=== PATIENT | male | born 1975 | race African-American/Black ===

== ENCOUNTER 2016-12-30 03:35 | Emergency (ER) | payer OTHER ==
[~2016-12-30] VITALS: Ht 177.8 cm; Wt 82.9 kg
[~2016-12-30 03:35] MED LIST: ASPI325T PO; HYDR-3533 PO
[2016-12-30 03:41] VITALS: BP 140/95; PULSE 82; RESP 16; TEMP 98.9; O2SAT 98
--- NOTE | 2016-12-30 04:00 | PD ---
HPI Chief Complaint: Cold / Flu Symptoms Time Seen by Provider: 03:56 Travel History International Travel<30 days: No Contact w/Intl Traveler<30days: No Traveled to known affect area: No History of Present Illness HPI The patient is a 41-year-old male who complains of cough, chills at home and had some chest pain earlier which is resolved since Wednesday. The patient did not take his temperature. He denies any sore throat, ear pain but has also had some slight diarrhea. He denies any shortness of breath. He smokes one half pack a day. PFSH Past Medical History Arthritis: No Asthma: No Autoimmune Disease: No Heart Rhythm Problems: No Cancer: No Cardiovascular Problems: No High Cholesterol: No Chemotherapy: No Chest Pain: No Congestive Heart Failure: No COPD: No Cerebrovascular Accident: No Diabetes: No Diminished Hearing: No Endocrine: No Glaucoma: No Genitourinary: No Headaches: Yes (CHRONIC X 2-3 YEARS STARTING IN 2008) Hepatitis: No Hiatal Hernia: No Hypertension: Yes (ONLY HIGH WITH PAIN) Immune Disorder: No Kidney Stones: No Medical other: Yes (spinal tap) Musculoskeletal: Yes (RIGHT ARM PAIN PRIOR, RESOLVING NOW) Neurologic: Yes Psychiatric: No Reproductive: No Respiratory: No Immunizations Current: Yes Migraines: No Myocardial Infarction: No Radiation Therapy: No Renal Failure: No Seizures: No Sickle Cell Disease: No Sleep Apnea: No Thyroid Disease: No Ulcer: No Influenza Vaccination: No PNEUMOCCOCAL Vaccine (Year): 2 Past Surgical History Abdominal Surgery: No AICD: No Appendectomy: No Arteriovenous Shunt: No Cardiac Surgery: No Cholecystectomy: No Ear Surgery: No Endocrine Surgery: No Eye Surgery: No Genitourinary Surgery: No Gynecologic Surgery: No Joint Replacement: No Oral Surgery: No Pacemaker: No Thoracic Surgery: No Social History Alcohol Use: Yes ( daily) Tobacco Use: No (quit) Substance Use: No Allergies-Medications (Allergen,Severity, Reaction): Coded Allergies: Toradol (Verified Allergy, Intermediate, Chills, 12/30/16) Tylenol/Codeine (Verified Allergy, Intermediate, 12/30/16) Reported Meds & Prescriptions Reported Meds & Active Scripts Active Phenergan (Promethazine HCl) 25 Mg Tablet 25 Mg PO Q6H PRN Phenergan (Promethazine HCl) 25 Mg Tablet 25 Mg PO Q6H PRN Review of Systems Except as stated in HPI: all other systems reviewed are Neg Physical Exam Narrative GENERAL: The patient is alert, oriented 3 in no respiratory distress. His vital signs show blood pressure 140/95 but are otherwise normal. SKIN: Focused skin assessment warm/dry. HEAD: Atraumatic. Normocephalic. EYES: Pupils equal and round. No scleral icterus. No injection or drainage. ENT: No nasal bleeding or discharge. Mucous membranes pink and moist. The tympanic membranes are clear and the throat shows no erythema, abscess or exudate. NECK: Trachea midline. No JVD. There is no meningismus present. CARDIOVASCULAR: Regular rate and rhythm. No murmur appreciated. RESPIRATORY: No accessory muscle use. Lungs show bilateral wheezes scattered widely. Breath sounds equal bilaterally. GASTROINTESTINAL: Abdomen soft, non-tender, nondistended. Hepatic and splenic margins not palpable. No guarding or rebound is present. MUSCULOSKELETAL: No obvious deformities. No clubbing. No cyanosis. No edema. NEUROLOGICAL: Awake and alert. No obvious cranial nerve deficits. Motor grossly within normal limits. Normal speech. PSYCHIATRIC: Appropriate mood and affect; insight and judgment normal. Data Data Last Documented VS Vital Signs Date Time Temp Pulse Resp B/P Pulse Ox O2 Delivery O2 Flow Rate FiO2 12/30/16 05:10 75 16 124/89 99 Room Air 12/30/16 03:41 98.9 Orders Complete Blood Count With Diff (12/30/16 03:57) Comprehensive Metabolic Panel (12/30/16 03:57) Chest, Pa & Lat (12/30/16 03:57) Ondansetron Inj (Zofran Inj) (12/30/16 05:00) Sodium Chlor 0.9% 1000 Ml Inj (Ns 1000 M (12/30/16 05:00) Acetaminophen (Tylenol) (12/30/16 05:30) Labs Laboratory Tests Test 12/30/16 04:11 White Blood Count 5.1 TH/MM3 Red Blood Count 4.39 MIL/MM3 Hemoglobin 13.7 GM/DL Hematocrit 40.4 % Mean Corpuscular Volume 91.9 FL Mean Corpuscular Hemoglobin 31.2 PG Mean Corpuscular Hemoglobin 33.9 % Concent Red Cell Distribution Width 11.8 % Platelet Count 228 TH/MM3 Mean Platelet Volume 8.1 FL Neutrophils (%) (Auto) 47.6 % Lymphocytes (%) (Auto) 39.6 % Monocytes (%) (Auto) 6.0 % Eosinophils (%) (Auto) 5.1 % Basophils (%) (Auto) 1.7 % Neutrophils # (Auto) 2.4 TH/MM3 Lymphocytes # (Auto) 2.0 TH/MM3 Monocytes # (Auto) 0.3 TH/MM3 Eosinophils # (Auto) 0.3 TH/MM3 Basophils # (Auto) 0.1 TH/MM3 CBC Comment DIFF FINAL Differential Comment Sodium Level 140 MEQ/L Potassium Level 3.7 MEQ/L Chloride Level 105 MEQ/L Carbon Dioxide Level 24.7 MEQ/L Anion Gap 10 MEQ/L Blood Urea Nitrogen 16 MG/DL Creatinine 1.20 MG/DL Estimat Glomerular Filtration 80 ML/MIN Rate Random Glucose 108 MG/DL Calcium Level 8.6 MG/DL Total Bilirubin 0.2 MG/DL Aspartate Amino Transf 24 U/L (AST/SGOT) Alanine Aminotransferase 37 U/L (ALT/SGPT) Alkaline Phosphatase 72 U/L Total Protein 7.0 GM/DL Albumin 3.3 GM/DL [facility] Medical Decision Making Medical Screen Exam Complete: Yes Emergency Medical Condition: Yes Medical Record Reviewed: Yes Interpretation(s) The CBC is normal. The complete metabolic profile shows a GFR of 80 and albumin 3.3 but is otherwise normal. The chest x-ray shows no acute disease. Differential Diagnosis Viral syndrome, viral gastroenteritis, pneumonia, bronchitis, electrolyte disorder, dehydration, renal insufficiency, hypo-/hyperglycemia, bacterial enteritis Narrative Course The patient appears to have a viral gastroenteritis. The low normal white count strongly suggest a viral etiology. It is now 0455 and the patient has become nauseated. We will give him some IV fluids as well as Zofran IV. He will be prescribed Phenergan and increase his clear liquid intake at home. He needs to follow-up with a primary care physician this week. The patient had a headache but we gave him some Tylenol and the headache is completely resolved now. The time now 0551. The patient at this time is not nauseated and has no headache and wants to go home. I tried write him a 4 day work excuse. He was not except that, he wants to work. I will write him a 2 day work excuse. He needs to follow-up with his primary care physician this week. It is now 0517 and the patient is successfully drinking Gatorade. Diagnosis Primary Impression: Viral gastroenteritis Additional Instructions: Rest, drink increased clear liquids and follow-up with your primary care physician this week. The Phenergan is for nausea and this is every 6 hours as needed. Do not allow yourself to get dehydrated. Med/Other Pt SpecificInfo: Prescription(s) given Scripts Promethazine (Phenergan)25 Mg [id number] Mg PO Q6H PRN (NAUSEA OR VOMITING) #30 TAB Ref 0 Prov:Josef Nguyen MD 12/30/16 Promethazine (Phenergan)25 Mg [id number] Mg PO Q6H PRN (NAUSEA OR VOMITING) #30 TAB Ref 0 Prov:Josef Nguyen MD 12/30/16 Disposition: 01 DISCHARGE HOME Condition: Stable Josef Nguyen MD Dec 30, 2016 04:00
[2016-12-30 04:17] LABS: AUTOMATED NEUTROPHIL # 2.4 TH/MM3 (1.8-7.7); BASOPHIL # 0.1 TH/MM3 (0-0.2); BASOPHIL % 1.7 % (0.0-2.0); EOSINOPHIL # 0.3 TH/MM3 (0-0.4); EOSINOPHIL % 5.1 % (0.0-4.0); HEMATOCRIT 40.4 % (39.0-51.0); HEMO FLAGS DIFF FINAL; LYMPH % 39.6 % (9.0-44.0); MEAN CELL VOLUME 91.9 FL (80.0-100.0); MEAN CORPUSCULAR HEMOGLOBIN 31.2 PG (27.0-34.0); MEAN CORPUSCULAR HGB CONC 33.9 % (32.0-36.0); NEUT % 47.6 % (16.0-70.0); PLATELET COUNT 228 TH/MM3 (150-450); RED BLOOD COUNT 4.39 MIL/MM3 (4.50-5.90); RED CELL DISTRIBUTION WIDTH 11.8 % (11.6-17.2); WHITE BLOOD COUNT 5.1 TH/MM3 (4.0-11.0)
[2016-12-30 04:29] LABS: CHLORIDE 105 MEQ/L (98-107); POTASSIUM 3.7 MEQ/L (3.5-5.1); SODIUM (NA) 140 MEQ/L (136-145)
[2016-12-30 04:32] LABS: ANION GAP 10 MEQ/L (5-15); BICARBONATE 24.7 MEQ/L (21.0-32.0)
[2016-12-30 04:33] LABS: BLOOD UREA NITROGEN 16 MG/DL (7-18)
[2016-12-30 04:35] LABS: ALT (GPT) 37 U/L (12-78)
[2016-12-30 04:36] LABS: AST (GOT) 24 U/L (15-37); GLOMERULAR FILTRATION RATE 80 ML/MIN (>89)
[2016-12-30 04:37] LABS: TOTAL BILIRUBIN ADULT 0.2 MG/DL (0.2-1.0)
[2016-12-30 04:38] LABS: ALKALINE PHOSPHATASE 72 U/L (45-117)
--- NOTE | 2016-12-30 04:50 | RADRPT ---
EXAM DATE/TIME: 12/30/2016 04:18 [facility] COMPARISON: No previous studies available for comparison. INDICATIONS : Cough. MEDICAL HISTORY : None. SURGICAL HISTORY : None. ENCOUNTER: Initial ACUITY: 2 days PAIN SCORE: 0/10 LOCATION: Bilateral chest FINDINGS: PA and lateral views of the chest demonstrate the lungs to be symmetrically aerated without evidence of mass, infiltrate or effusion. The cardiomediastinal contours are unremarkable. Osseous structure s are intact. CONCLUSION: No acute disease. Brady Tovar MD on December 30, 2016 at 4:47 Board Certified Radiologist. This report was verified electronically.
[2016-12-30] MEDS ORDERED: ONDANSETRON HCL 4 MG/2 ML VIAL IV ONE (05:00)
[2016-12-30] MEDS ORDERED: SODIUM CHLOR 0.9% 1000 ML INJ 1,000 ML IV SCH (05:00)
[2016-12-30 05:10] VITALS: BP 124/89; PULSE 75; RESP 16; O2SAT 99
[2016-12-30] MEDS ORDERED: PROM25TA10 PO ×2 (05:22→05:24)
[2016-12-30] MEDS ORDERED: ACETAMINOPHEN 500 MG CPLT PO ONE (05:30)
[2016-12-30 06:05] VITALS: BP 126/86
== END 2016-12-30 06:07 | disposition home or self-care (01) ==
LOC: PHED 03:35
DX: A08.4 Viral intestinal infection, unspecified (principal); R05 Cough; R68.83 Chills (without fever); I10 Essential (primary) hypertension; F17.200 Nicotine dependence, unspecified, uncomplicated; Z87.39 Personal history of other diseases of the musculoskeletal system and connective tissue; Z86.69 Personal history of other diseases of the nervous system and sense organs
CPT/HCPCS: 71020; 80053; 85025; 96361; 96374; 99284; J2405; J7030

== ENCOUNTER 2017-11-14 11:01 | Emergency (ER) | payer BC, OTHER ==
[~2017-11-14] VITALS: Ht 175.3 cm; Wt 86.0 kg
[~2017-11-14 11:01] MED LIST changes: -ASPI325T PO; -HYDR-3533 PO; +PROM25TA10 PO
[2017-11-14 11:04] VITALS: BP 175/117; PULSE 104; RESP 16; TEMP 98; O2SAT 95
--- NOTE | 2017-11-14 12:03 | RADRPT ---
EXAM DATE/TIME: 11/14/2017 11:48 [facility] COMPARISON: No previous studies available for comparison. INDICATIONS : Fell on stairs, left knee area pain MEDICAL HISTORY : None. SURGICAL HISTORY : None. ENCOUNTER: Initial ACUITY: 1 day PAIN SCORE: 10/10 LOCATION: Left knee FINDINGS: Four view examination of the left knee demonstrates no evidence of fracture or dislocation. Bony min eralization is normal. The articular surfaces are intact. The suprapatellar soft tissues have a nor mal configuration. Inferior patellar tendon calcifications. CONCLUSION: 1. No acute fracture or dislocation. Bertin Ritter MD on November 14, 2017 at 12:00 Board Certified Radiologist. This report was verified electronically.
[2017-11-14] MEDS ORDERED: traMADol HCL 50 MG TAB PO ONE (12:30)
[2017-11-14] MEDS ORDERED: TRAM50 PO (12:43)
--- NOTE | 2017-11-14 12:44 | PD ---
HPI Chief Complaint: Injury Time Seen by Provider: 12:08 Travel History International Travel<30 days: No Contact w/Intl Traveler<30days: No Traveled to known affect area: No History of Present Illness HPI This is a 41-year-old male here with left knee pain. He reports while chasing after his dog he twisted the left knee and had immediate pain. He now has pain with weightbearing range of motion. Symptom severity is moderate. Injury occurred prior to arrival. Denies altered sensation or weakness of the extremity. No other injuries. PFSH Past Medical History Arthritis: No Asthma: No Autoimmune Disease: No Heart Rhythm Problems: No Cancer: No Cardiovascular Problems: No High Cholesterol: No Chemotherapy: No Chest Pain: No Congestive Heart Failure: No COPD: No Cerebrovascular Accident: No Diabetes: No Diminished Hearing: No Endocrine: No Glaucoma: No Genitourinary: No Headaches: Yes (CHRONIC X 2-3 YEARS STARTING IN 2008) Hepatitis: No Hiatal Hernia: No Hypertension: Yes (ONLY HIGH WITH PAIN) Immune Disorder: No Kidney Stones: No Musculoskeletal: Yes (RIGHT ARM PAIN PRIOR, RESOLVING NOW) Neurologic: Yes Psychiatric: No Reproductive: No Respiratory: No Immunizations Current: Yes Migraines: No Myocardial Infarction: No Radiation Therapy: No Renal Failure: No Seizures: No Sickle Cell Disease: No Sleep Apnea: No Thyroid Disease: No Ulcer: No PNEUMOCCOCAL Vaccine (Year): 2 Past Surgical History Abdominal Surgery: No AICD: No Appendectomy: No Arteriovenous Shunt: No Cardiac Surgery: No Cholecystectomy: No Ear Surgery: No Endocrine Surgery: No Eye Surgery: No Genitourinary Surgery: No Gynecologic Surgery: No Joint Replacement: No Oral Surgery: No Pacemaker: No Thoracic Surgery: No Social History Alcohol Use: Yes ( daily) Tobacco Use: No (quit) Substance Use: No Allergies-Medications (Allergen,Severity, Reaction): Coded Allergies: acetaminophen (Unverified Allergy, Intermediate, 11/14/17) codeine (Unverified Allergy, Intermediate, 11/14/17) ketorolac (Unverified Allergy, Intermediate, Chills, 11/14/17) Reported Meds & Prescriptions Reported Meds & Active Scripts Active Phenergan (Promethazine HCl) 25 Mg Tablet 25 Mg PO Q6H PRN Phenergan (Promethazine HCl) 25 Mg Tablet 25 Mg PO Q6H PRN Review of Systems Except as stated in HPI: all other systems reviewed are Neg Physical Exam Narrative GENERAL: Alert and well-appearing 41-year-old male SKIN: Warm and dry. HEAD: Normocephalic. EYES: No scleral icterus. No injection or drainage. NECK: Supple CARDIOVASCULAR: Regular rate and rhythm RESPIRATORY: Breath sounds equal bilaterally. No accessory muscle use. GASTROINTESTINAL: Abdomen soft, non-tender, nondistended. MUSCULOSKELETAL: No cyanosis, or edema. Left lower extremity: +ttp left anterior knee with mild swelling. The joint is stable. He has pain with full flexion. Palpable distal pulses. Normal sensation. Brisk cap refill. BACK: Nontender without obvious deformity. No CVA tenderness. Data Data Last Documented VS Vital Signs Date Time Temp Pulse Resp B/P (MAP) Pulse Ox O2 Delivery O2 Flow Rate FiO2 11/14/17 11:04 98.0 104 16 175/117 (136) 95 Orders Orders Knee, Complete (4vws) (11/14/17 ) Tramadol (Ultram) (11/14/17 12:30) ^ Knee Immobilizer (11/14/17 12:21) Crutches (11/14/17 12:21) MDM Medical Decision Making Medical Screen Exam Complete: Yes Emergency Medical Condition: Yes Differential Diagnosis Knee fracture, knee sprain, meniscal injury Narrative Course 41-year-old male with left knee pain after twisting injury today. X-rays negative for fracture. Extremity is neurovascularly intact. Knee immobilizing splint placed. Crutches provided. Pain medication as needed. Follow-up with PCP Orth Diagnosis Primary Impression: Knee sprain Qualified Codes: S83.92XA - Sprain of unspecified site of left knee, initial encounter Referrals: Primary Care Physician Departure Forms: Tests/Procedures, Work Release Enter return to work date: November 17, 2017 Additional Instructions: Knee immobilizer and crutches until weightbearing as possible. Follow-up with the primary doctor or orthopedic doctor Ice and elevate the extremity Scripts Tramadol (Ultram) 50 Mg Tab 50 MG PO Q6H Y for PAIN, #8 TAB 0 Refills Prov: Etta Liriano 11/14/17 Disposition: 01 DISCHARGE HOME Condition: Stable Etta iLriano November 14, 2017 12:44
== END 2017-11-14 13:06 | disposition home or self-care (01) ==
LOC: PHEFT 11:01
DX: S83.92XA Sprain of unspecified site of left knee, initial encounter (principal); X50.1XXA Overexertion from prolonged static or awkward postures, initial encounter; I10 Essential (primary) hypertension
CPT/HCPCS: 73564; 99283; E0113